=== PATIENT | female | born 1985 | race Caucasian/White ===

== ENCOUNTER → 2016-05-18 | Outpatient (CLI) | payer BC ==
[2016-05-18 11:18] LABS: BASO % 0.6 % (0.0-1.0); EOS # 0.7 K/mm3 (0.0-0.50); EOS % 8.2 % (0.0-3.0); LARGE UNSTAINED CELL # 0.1 K/mm3 (0.0-0.4); LYMPH # 1.2 K/mm3 (1.5-4.5); LYMPH % 12.4 % (24.0-44.0); MEAN CORPUSCULAR HEMOGLOBIN 30.6 pg (27.0-33.0); MEAN CORPUSCULAR HGB CONC 32.3 g/dl (32.0-36.5); MEAN CORPUSCULAR VOLUME 94.8 fl (80.0-96.0); MONO # 0.5 K/mm3 (0.0-0.8); MONO % 5.2 % (0.0-5.0); NEUTROPHILS # 6.4 K/mm3 (1.8-7.7); NEUTROPHILS % 72.6 % (36.0-66.0); PLATELET COUNT, AUTOMATED 229 k/mm3 (150-450); RED CELL DISTRIBUTION WIDTH 12.1 % (11.5-14.5); WHITE BLOOD COUNT 8.8 K/mm3 (4.0-10.0)
[2016-05-18 11:30] LABS: ALBUMIN 4.1 GM/DL (3.2-5.2); ALBUMIN/GLOBULIN RATIO 1.24 (1.00-1.93); CALCIUM LEVEL 8.9 MG/DL (8.5-10.1); CREATININE FOR GFR 1.14 MG/DL (0.55-1.02); GLOMERULAR FILTRATION RATE 58.4 (>60); POTASSIUM SERUM 4.4 MEQ/L (3.5-5.1); TOTAL PROTEIN 7.4 GM/DL (6.4-8.2)
== END ==
LOC: M ADAMS 08:16
PROVIDERS: ATTEND Family Medicine
DX: Z00.00 Encounter for general adult medical examination without abnormal findings (principal); E55.9 Vitamin D deficiency, unspecified

== ENCOUNTER → 2016-12-24 | Outpatient (CLI) | payer BC ==
--- NOTE | 2016-12-24 18:51 | REP ---
Clinical: Lateral Pain . Technique: AP, lateral, bilateral oblique views right foot . Findings: The osseous structures and joint spaces are intact and normal. There is no evidence for acute fracture or dislocation. Surrounding soft tissues are unremarkable. No subcutaneous emphysema or radiodense foreign body. Impression: Normal right foot series . No acute fracture or dislocation. Signed by Kiran King MD 12/24/2016 06:42 P
== END ==
LOC: M ADAMS 18:25
PROVIDERS: ATTEND Physician Assistant Medical
DX: M79.671 Pain in right foot (principal)

== ENCOUNTER 2017-03-24 07:03 | Day surgery (SDC) | payer BC ==
[~2017-03-24] VITALS: Ht 165.1 cm; Wt 71.7 kg
[~2017-03-24 07:03] MED LIST: SING10TA32 PO; ZYRT10CA PO
[2017-03-24] MEDS ORDERED: LIDOCAINE 2% INJ 100 MG/5 ML SDV (FOR ANES.) As Ordered ONE (07:09)
[2017-03-24] MEDS ORDERED: PROPOFOL 200 MG/20 ML VIAL As Ordered ONE (07:09)
[2017-03-24] MEDS ORDERED: NS 1,000 ML IV ONE (07:15)
[2017-03-24] MEDS ORDERED: ALBU83IN INH (07:27)
[2017-03-24] MEDS ORDERED: fentaNYL 100 MCG/2 ML INJECTION (J3010) As Ordered ONE (07:35)
--- NOTE | 2017-03-24 08:06 | ROOR ---
Patient Name: Ale Alexander Procedure Date: 03/24/2017 7:37 AM Date of : 1985 Age: 32 Room: [facility] Gender: Female Note Status: Finalized Procedure: Upper GI endoscopy + Balloon Dilatation + Biopsies Indications: Dysphagia Providers: Sam Ram MD Referring MD: Mayra Flores MD Requesting Provider: Medicines: Monitored Anesthesia Care Complications: No immediate complications. Procedure: Pre-Anesthesia Assessment: - The heart rate, respiratory rate, oxygen saturations, blood pressure, adequacy of pulmonary ventilation, and response to care were monitored throughout the procedure. The Endoscope was introduced through the mouth, and advanced to the second part of duodenum. The upper GI endoscopy was accomplished without difficulty. The patient tolerated the procedure well. Findings: Mucosal changes including ringed esophagus were found in the entire esophagus. Biopsies were obtained from the proximal and distal esophagus with cold forceps for histology of suspected eosinophilic esophagitis. Three benign-appearing, intrinsic stenoses were found. These stenoses were severe (stenosis; an endoscope cannot pass) and. The stenoses were traversed after dilation. A TTS dilator was passed through the scope. Dilation with a 10-11-12 mm balloon dilator was performed to 12 mm. The dilation site was examined and showed complete resolution of luminal narrowing. The examined duodenum was normal. The stomach was normal. The examined duodenum was normal. Impression: - Esophageal mucosal changes suggestive of eosinophilic esophagitis. Biopsied. - Benign-appearing esophageal stenoses. Dilated. - Normal examined duodenum. - Normal stomach. - Normal examined duodenum. - The examination was otherwise normal. Recommendation: - Patient has a contact number available for emergencies. The signs and symptoms of potential delayed complications were discussed with the patient. Return to normal activities tomorrow. Written discharge instructions were provided to the patient. - Discharge patient to home. - Continue present medications. - Await pathology results. - Telephone GI clinic for pathology results in 1 week. - The findings and recommendations were discussed with the patient's family. Sam Ram MD Sam Ram MD 03/24/2017 8:06:17 AM This report has been signed electronically. Number of Addenda: 0 Note Initiated On: 03/24/2017 7:37 AM Estimated Blood Loss: Estimated blood loss: none.
[2017-03-24 08:35] VITALS: BP 125/73
== END 2017-03-24 08:36 | disposition home or self-care (01) ==
LOC: M OPP 07:03
PROVIDERS: ATTEND Internal Medicine Gastroenterology
DX: R13.10 Dysphagia, unspecified (principal); R63.4 Abnormal weight loss; R63.0 Anorexia; K22.8 Other specified diseases of esophagus; K22.2 Esophageal obstruction; J45.909 Unspecified asthma, uncomplicated; F41.9 Anxiety disorder, unspecified; Z88.5 Allergy status to narcotic agent; Z91.010 Allergy to peanuts; Z91.013 Allergy to seafood; Z79.899 Other long term (current) drug therapy; Z80.0 Family history of malignant neoplasm of digestive organs
CPT/HCPCS: 43239; 43249; 88305; J3010

== ENCOUNTER → 2017-04-03 | Outpatient (REF) | payer BC ==
[~2017-04-03] MED LIST changes: +ALBU83IN INH
== END ==
LOC: M LAB REF 08:27
PROVIDERS: ATTEND Allergy & Immunology Allergy
DX: K20.0 Eosinophilic esophagitis (principal)

== ENCOUNTER → 2017-04-24 | Outpatient (REF) | payer BC ==
[2017-04-24 19:58] LABS: BASO # 0.1 10^3/uL (0.0-0.2); BASO % 0.8 % (0.0-1.0); EOS # 0.5 10^3/uL (0.0-0.50); HEMATOCRIT 40.5 % (36.0-47.0); HEMOGLOBIN 13.3 g/dl (12.0-16.0); IMMATURE GRANULOCYTE % 0.3 % (0-0); LYMPH # 1.9 10^3/uL (1.5-4.5); LYMPH % 28.1 % (24.0-44.0); MEAN CORPUSCULAR HEMOGLOBIN 30.4 pg (27.0-33.0); MEAN CORPUSCULAR HGB CONC 32.8 g/dl (32.0-36.5); MEAN CORPUSCULAR VOLUME 92.5 fl (80.0-96.0); MONO # 0.6 10^3/uL (0.0-0.8); MONO % 8.3 % (0.0-5.0); NEUTROPHILS # 3.6 10^3/uL (1.8-7.7); NEUTROPHILS % 54.5 % (36.0-66.0); PLATELET COUNT, AUTOMATED 219 10^3/uL (150-450); RED BLOOD COUNT 4.38 10^6/uL (4.00-5.40); RED CELL DISTRIBUTION WIDTH 12.3 % (11.5-14.5); WHITE BLOOD COUNT 6.7 10^3/uL (4.0-10.0)
== END ==
LOC: M LABDRWAD 19:24
DX: J45.40 Moderate persistent asthma, uncomplicated (principal); K20.0 Eosinophilic esophagitis
CPT/HCPCS: 85025

== ENCOUNTER → 2017-05-05 | Outpatient (REF) | payer BC | LOC: M LAB REF 13:23 | DX: D48.5 Neoplasm of uncertain behavior of skin (principal) ==

== ENCOUNTER → 2017-11-21 | Outpatient (CLI) | payer BC | LOC: M RAD 09:34 | DX: R93.8 Abnormal findings on diagnostic imaging of other specified body structures (principal); R06.00 Dyspnea, unspecified; R11.2 Nausea with vomiting, unspecified; R50.9 Fever, unspecified; R07.9 Chest pain, unspecified | CPT/HCPCS: 71250 ==

== ENCOUNTER → 2018-02-04 | Outpatient (CLI) | payer BC | LOC: M ADAMS 16:44 | DX: S50.02XA Contusion of left elbow, initial encounter (principal); W01.198A Fall on same level from slipping, tripping and stumbling with subsequent striking against other object, initial encounter; Y92.89 Other specified places as the place of occurrence of the external cause | CPT/HCPCS: 73080 ==

== ENCOUNTER 2018-04-09 10:40 | Emergency (ER) | payer BC ==
[~2018-04-09] VITALS: Ht 165.1 cm; Wt 69.1 kg
[2018-04-09] MEDS ORDERED: RANI150T (10:53)
[2018-04-09] MEDS ORDERED: ESOM1CAP5 (10:53)
[2018-04-09] MEDS ORDERED: MONT10TA2 (10:53)
[2018-04-09] MEDS ORDERED: SYMB80INH (10:53)
[2018-04-09] MEDS ORDERED: KETOROLAC 60 MG/2 ML VIAL (J1885) IM ONE (12:15)
[2018-04-09] MEDS ORDERED: dexameTHASONE 4 MG/ML 1ML VIAL (J1100) IM ONE (12:15)
[2018-04-09] MEDS ORDERED: CYCLOBENZAPRINE 10 MG TAB PO ONE (12:15)
[2018-04-09] MEDS ORDERED: PRED10TA2 PO (12:46)
[2018-04-09] MEDS ORDERED: NAPR-885 PO (12:46)
[2018-04-09 12:56] VITALS: BP 115/61
== END 2018-04-09 12:57 | disposition home or self-care (01) ==
LOC: M ED 10:40
DX: M54.32 Sciatica, left side (principal); J45.909 Unspecified asthma, uncomplicated; K20.9 Esophagitis, unspecified; Z91.018 Allergy to other foods; Z91.013 Allergy to seafood; Z91.011 Allergy to milk products; Z91.012 Allergy to eggs; Z88.5 Allergy status to narcotic agent; Z79.899 Other long term (current) drug therapy; Z79.51 Long term (current) use of inhaled steroids
CPT/HCPCS: 96372; 99283; J1100; J1885

== ENCOUNTER 2018-04-21 18:11 | Emergency (ER) | payer BC ==
[~2018-04-21] VITALS: Ht 165.1 cm; Wt 68.2 kg
[~2018-04-21 18:11] MED LIST changes: +ESOM1CAP5; +MONT10TA2; +NAPR-885 PO; +PRED10TA2 PO; +RANI150T; +SYMB80INH
[2018-04-21] MEDS ORDERED: diazePAM 10 MG TAB PO ONE (19:45)
[2018-04-21] MEDS ORDERED: fentaNYL 100 MCG/2 ML INJECTION (J3010) IM ONE (19:45)
[2018-04-21] MEDS ORDERED: GABA-843 PO (20:23)
[2018-04-21] MEDS ORDERED: META1TAB22 (20:23)
[2018-04-21] MEDS ORDERED: HYDROMORPHONE HCL 0.5 MG/ 0.5 ML SYRINGE (J1170 PER 1) IM STA (21:06)
--- NOTE | 2018-04-21 22:36 | REPVR ---
EXAM: MR Lumbar Spine Without Contrast. EXAM DATE/TIME: 04/21/2018 9:52 PM CLINICAL HISTORY: 33 years old, female; Pain; Sciatica; Bilateral; Patient HX: Siatic pain, >24 hours. Numbness down to toes, unable to bear weight, inability to void colon or bladder. Nki; Additional info: PT tender, groin numbness, lle weakness TECHNIQUE: Multiplanar magnetic resonance images of the lumbar spine without intravenous contrast. COMPARISON: No relevant prior studies available. FINDINGS: Vertebrae: Dextroscoliosis. T2 dark signal throughout the vertebral bodies consistent with normal red marrow in this age group. Spinal cord: Normal signal. No cord compression. DISCS/SPINAL CANAL/NEURAL FORAMINA: Levels reported below based on the assumption that the last mobile lumbar segments represents L5 however correlation with complete spine films recommended to count vertebrae and to exclude the possibility of a lumbarized S1 segment. L1-L2: No significant disc disease. No stenosis. L2-L3: Mild annular bulge L2-3 without central spinal stenosis. No foraminal or lateral recess stenosis. L3-L4: Disc desiccation and a small tear in the posterior annulus of L3-4. Bulging disc flattens the ventral subarachnoid space resulting in mild central spinal stenosis. No lateral recess or foraminal stenosis. L4-L5: Disc desiccation and loss of disc height at L4-5. Left paracentral inferiorly extruded disc herniation extends 9.5 mm below the superior endplate of L5 compressing the left ventrolateral aspect of the thecal sac, posteriorly displacing the traversing nerve roots and likely impinging on the exiting L4 nerve root on the left. Smaller foraminal disc protrusion on the right narrows the proximal neural foramen without impingement on the exiting L4 nerve on the right. No left-sided neural foraminal narrowing. Mild facet joint arthropathy. L5-S1: Disc desiccation and a bulging annulus at L5-S1 without central spinal stenosis. No foraminal or lateral recess stenosis. Soft tissues: Unremarkable. IMPRESSION: Left paracentral inferiorly extruded disc herniation at L4-5 extends 9.5 mm below the superior endplate of L5 compressing the left ventrolateral aspect of the thecal sac, posteriorly displacing the traversing nerve roots and likely impinging on the left exiting L4 nerve root. Smaller foraminal disc protrusion on the right narrows the proximal neural foramen without impingement on the exiting L4 nerve on the right. No left-sided neural foraminal narrowing. Mild facet joint arthropathy. Small annular tear demonstrated posteriorly at L3-4 without neural compromise. Bulging annulus at L5-S1 without neural compromise. Electronically signed by: Jacob Pineda On 04/21/2018 22:35:53 PM
[2018-04-21] MEDS ORDERED: PERC5TAB12 PO (23:50)
[2018-04-21] MEDS ORDERED: VALI10TA PO (23:50)
[2018-04-22] MEDS ORDERED: HYDROmorphone 2 MG TAB PO ONE
[2018-04-22 00:08] VITALS: BP 122/68
--- NOTE | 2018-04-23 16:16 | ED PDOC ---
Post-Departure Follow-Up dr borja faxed formal report of mri ls spine for fu Michael Sevilla MD Apr 23, 2018 16:16
== END 2018-04-22 00:09 | disposition home or self-care (01) ==
LOC: M ED 18:11
DX: M51.27 Other intervertebral disc displacement, lumbosacral region (principal); M54.16 Radiculopathy, lumbar region; M54.32 Sciatica, left side; J45.909 Unspecified asthma, uncomplicated; Z88.5 Allergy status to narcotic agent; Z91.011 Allergy to milk products; Z91.012 Allergy to eggs; Z91.018 Allergy to other foods; Z91.81 History of falling; Z79.899 Other long term (current) drug therapy; Z79.51 Long term (current) use of inhaled steroids
CPT/HCPCS: 72148; 96372; 99283; J1170; J3010

== ENCOUNTER → 2018-08-28 | Outpatient (REF) | payer BC ==
[~2018-08-28] MED LIST changes: +GABA-843 PO; +META1TAB22; +PERC5TAB12 PO; +VALI10TA PO
[2018-08-28 18:56] LABS: AMORPHOUS SEDIMENT SMALL (NEGATIVE); APPEARANCE, URINE CLOUDY (CLEAR); BACTERIA, URINE AUTO NEGATIVE (NEGATIVE); BILIRUBIN, URINE AUTO NEGATIVE (NEGATIVE); BLOOD, URINE BLOOD 3+ (NEGATIVE); COLOR, URINE YELLOW (YELLOW); GLUCOSE, URINE (UA) AUTO NEGATIVE (NEGATIVE); KETONE, URINE AUTO NEGATIVE (NEGATIVE); LEUKOCYTE ESTERASE, URINE AUTO NEGATIVE (NEGATIVE); MUCUS, URINE SMALL (NEGATIVE); NITRITE, URINE AUTO NEGATIVE (NEGATIVE); PROTEIN, URINE AUTO NEGATIVE (NEGATIVE); RBC, URINE AUTO TNTC /HPF (0-3); SPECIFIC GRAVITY URINE AUTO 1.021 (1.002-1.035); SQUAMOUS EPITHELIAL CELL UR AU 1 /HPF (0-6); WBC, URINE AUTO 4 /HPF (0-3)
== END ==
LOC: M LAB REF 18:35
PROVIDERS: ATTEND Physician Assistant Medical
DX: N39.0 Urinary tract infection, site not specified (principal)

== ENCOUNTER → 2018-09-08 | Outpatient (REF) | payer BC ==
[2018-09-08 13:24] LABS: APPEARANCE, URINE CLEAR (CLEAR); BACTERIA, URINE AUTO 1+ (NEGATIVE); BILIRUBIN, URINE AUTO NEGATIVE (NEGATIVE); BLOOD, URINE BLOOD NEGATIVE (NEGATIVE); COLOR, URINE YELLOW (YELLOW); GLUCOSE, URINE (UA) AUTO NEGATIVE (NEGATIVE); KETONE, URINE AUTO NEGATIVE (NEGATIVE); LEUKOCYTE ESTERASE, URINE AUTO NEGATIVE (NEGATIVE); MUCUS, URINE SMALL (NEGATIVE); NITRITE, URINE AUTO NEGATIVE (NEGATIVE); PROTEIN, URINE AUTO NEGATIVE (NEGATIVE); RBC, URINE AUTO 0 /HPF (0-3); SPECIFIC GRAVITY URINE AUTO 1.024 (1.002-1.035); SQUAMOUS EPITHELIAL CELL UR AU 0 /HPF (0-6); UROBILINOGEN, URINE AUTO 0.2 mg/dL (0.0-2.0); WBC, URINE AUTO 0 /HPF (0-3)
== END ==
LOC: M LAB REF 12:38
PROVIDERS: ATTEND Obstetrics & Gynecology
DX: N76.1 Subacute and chronic vaginitis (principal); R10.2 Pelvic and perineal pain

== ENCOUNTER → 2018-10-29 | Outpatient (REF) ==
[2018-10-29 17:56] LABS: BASO % 0.7 % (0.0-1.0); EOS # 0.1 10^3/uL (0.0-0.50); EOS % 1.1 % (0.0-3.0); HEMATOCRIT 44.6 % (36.0-47.0); HEMOGLOBIN 14.4 g/dl (12.0-15.5); LYMPH # 1.3 10^3/uL (1.5-4.5); LYMPH % 29.1 % (24.0-44.0); MEAN CORPUSCULAR HEMOGLOBIN 30.3 pg (27.0-33.0); MEAN CORPUSCULAR HGB CONC 32.3 g/dl (32.0-36.5); MEAN CORPUSCULAR VOLUME 93.7 fl (80.0-96.0); MONO # 0.4 10^3/uL (0.0-0.8); MONO % 9.6 % (0.0-5.0); NEUTROPHILS # 2.7 10^3/uL (1.8-7.7); NEUTROPHILS % 59.3 % (36.0-66.0); PLATELET COUNT, AUTOMATED 215 10^3/uL (150-450); RED BLOOD COUNT 4.76 10^6/uL (4.00-5.40); WHITE BLOOD COUNT 4.6 10^3/uL (4.0-10.0)
== END ==
LOC: M LABSMT 17:18
PROVIDERS: ATTEND Allergy & Immunology Allergy
DX: J45.50 Severe persistent asthma, uncomplicated (principal)

== ENCOUNTER → 2019-04-15 | Outpatient (CLI) | payer BC ==
--- NOTE | 2019-04-15 11:39 | REPPI ---
Clinical: Severe asthma. Dyspnea. Technique: PA and lateral. Comparison: 04/16/2012. Findings: Mediastinum and cardiac silhouette are normal. Subtle lingular atelectasis cannot be excluded. No focal consolidation. No effusion. No pneumothorax. Skeletal structures intact. Impression: Subtle lingular atelectasis. Electronically Signed by Kiran King MD 04/15/2019 11:30 A
== END ==
LOC: M PLAIMG 11:16 → M PLALAB 11:16
PROVIDERS: ATTEND Nurse Practitioner Adult Health
DX: J45.50 Severe persistent asthma, uncomplicated (principal)

== ENCOUNTER → 2019-04-16 | Outpatient (CLI) | payer BC ==
[2019-04-16 14:10] LABS: BASO % 0.6 % (0.0-1.0); EOS # 0.1 10^3/uL (0.0-0.5); EOS % 1.4 % (0.0-3.0); HEMATOCRIT 44.9 % (36.0-47.0); HEMOGLOBIN 13.9 g/dl (12.0-15.5); LYMPH # 1.5 10^3/uL (1.5-5.0); LYMPH % 30.7 % (24.0-44.0); MEAN CORPUSCULAR HEMOGLOBIN 29.4 pg (27.0-33.0); MEAN CORPUSCULAR VOLUME 95.1 fl (80.0-96.0); MONO # 0.4 10^3/uL (0.0-0.8); MONO % 7.2 % (0.0-5.0); NEUTROPHILS # 2.9 10^3/uL (1.5-8.5); NEUTROPHILS % 59.7 % (36.0-66.0); PLATELET COUNT, AUTOMATED 241 10^3/uL (150-450); RED BLOOD COUNT 4.72 10^6/uL (4.00-5.40); WHITE BLOOD COUNT 4.9 10^3/uL (4.0-10.0)
== END ==
LOC: M PLALAB 08:46
PROVIDERS: ATTEND Nurse Practitioner Adult Health
DX: J45.50 Severe persistent asthma, uncomplicated (principal)

== ENCOUNTER → 2019-08-23 | Outpatient (CLI) | payer BC ==
[~2019-08-23] MED LIST changes: -MONT10TA2; +MONT10TA4
[2019-08-23 13:48] LABS: BASO % 0.5 % (0.0-1.0); EOS # 0.1 10^3/uL (0.0-0.5); EOS % 0.8 % (0.0-3.0); HEMATOCRIT 41.2 % (36.0-47.0); HEMOGLOBIN 13.5 g/dl (12.0-15.5); LYMPH # 1.6 10^3/uL (1.5-5.0); LYMPH % 24.2 % (24.0-44.0); MEAN CORPUSCULAR HEMOGLOBIN 30.3 pg (27.0-33.0); MEAN CORPUSCULAR HGB CONC 32.8 g/dl (32.0-36.5); MEAN CORPUSCULAR VOLUME 92.6 fl (80.0-96.0); MONO # 0.5 10^3/uL (0.0-0.8); MONO % 7.9 % (0.0-5.0); NEUTROPHILS # 4.3 10^3/uL (1.5-8.5); NEUTROPHILS % 66.4 % (36.0-66.0); PLATELET COUNT, AUTOMATED 241 10^3/uL (150-450); RED BLOOD COUNT 4.45 10^6/uL (4.00-5.40); WHITE BLOOD COUNT 6.4 10^3/uL (4.0-10.0)
== END ==
LOC: M PLALAB 11:38
PROVIDERS: ATTEND Family Medicine
DX: D70.2 Other drug-induced agranulocytosis (principal)

== ENCOUNTER → 2019-10-04 | Outpatient (CLI) | payer BC ==
[~2019-10-04] MED LIST changes: +ADVI200T PO; +FLUT22IN INH; +HM A10TA PO; +NORC1TAB7 PO; +[UNRECOGNIZED DRUG - OTHER] SC
== END ==
LOC: M LABSMTC 09:49
PROVIDERS: ATTEND Anesthesiology
DX: Z03.818 Encounter for observation for suspected exposure to other biological agents ruled out (principal); Z11.59 Encounter for screening for other viral diseases
CPT/HCPCS: C9803; U0003

== ENCOUNTER 2019-10-07 07:21 | Day surgery (SDC) | payer BC ==
[~2019-10-07] VITALS: Ht 165.1 cm; Wt 66.2 kg
[2019-10-07] VITALS (8 sets, daily range): BP systolic 105–127; BP diastolic 55–72
[~2019-10-07 07:21] MED LIST changes: -ADVI200T PO; +LR 1,000 ML IV ONE; -NORC1TAB7 PO; +ceFAZolin SOD 2 GM in IV 1 EA IV ONE
[2019-10-07] MEDS ORDERED: propofoL 200 MG/20 ML VIAL As Ordered ONE (07:40)
[2019-10-07] MEDS ORDERED: LIDOCAINE 2% 100MG/5ML SDV (FOR ANES.) As Ordered ONE (07:40)
[2019-10-07] MEDS ORDERED: ROCURONIUM BROMIDE 50 MG/5 ML VIAL As Ordered ONE (07:40)
[2019-10-07] MEDS ORDERED: fentaNYL 250 MCG/5 ML INJECTION (J3010) As Ordered ONE (07:40)
[2019-10-07] MEDS ORDERED: MIDAZOLAM INJ 2MG/2ML VIAL (J2250 PER 1MG) As Ordered ONE (07:41)
[2019-10-07 08:06] LABS: HEMATOCRIT 41.7 % (36.0-47.0); HEMOGLOBIN 13.3 g/dl (12.0-15.5); MEAN CORPUSCULAR HEMOGLOBIN 28.9 pg (27.0-33.0); MEAN CORPUSCULAR HGB CONC 31.9 g/dl (32.0-36.5); MEAN CORPUSCULAR VOLUME 90.5 fl (80.0-96.0); PLATELET COUNT, AUTOMATED 207 10^3/uL (150-450); RED BLOOD COUNT 4.61 10^6/uL (4.00-5.40)
[2019-10-07] MEDS ORDERED: diphenhydrAMINE 50MG/ML VIAL (J1200) As Ordered ONE (08:14)
[2019-10-07] MEDS ORDERED: diphenhydrAMINE 50MG/ML VIAL (J1200) IV ONE (08:30)
[2019-10-07] MEDS ORDERED: ESMOLOL INJ 100MG/10ML VIAL As Ordered ONE (09:00)
[2019-10-07] MEDS ORDERED: ACETAMINOPHEN 1000MG 100ML IV BTL (OFIRMEV) (J0131 PER 10MG) As Ordered ONE (09:15)
[2019-10-07] MEDS ORDERED: KETOROLAC 60MG 2ML VIAL As Ordered ONE (09:15)
[2019-10-07] MEDS ORDERED: ONDANSETRON 4MG/2ML VIAL As Ordered ONE (09:15)
[2019-10-07] MEDS ORDERED: dexameTHASONE 4 MG/ML 1ML VIAL (J1100 PER 1MG) As Ordered ONE (09:15)
[2019-10-07] MEDS ORDERED: SUGAMMADEX SODIUM 500 MG/5 ML VIAL (BRIDION) As Ordered ONE (09:34)
[2019-10-07] MEDS ORDERED: HYDROmorphone HCL 2 MG/ML 1ML VIAL (J1170) As Ordered ONE (09:46)
[2019-10-07] MEDS ORDERED: MORPHINE 1MG/ML IN 0.9% NACL 100ML IV BAG As Ordered ONE (10:17)
[2019-10-07] MEDS: LR 1,000 ML IV SCH ×2 (10:30→18:30)
[2019-10-07] MEDS ORDERED: diphenhydrAMINE 50MG/ML VIAL (J1200) IV PRN (11:00)
[2019-10-07] MEDS ORDERED: MORPHINE 1MG/ML IN 0.9% NACL 100ML IV BAG IV PRN (11:00)
[2019-10-07] MEDS ORDERED: METOCLOPRAMIDE INJ 10MG/2ML VIAL (J2765 PER 1) IV PRN (11:00)
[2019-10-07] MEDS ORDERED: EPIDURAL/PCA KEYS XX PRN (11:00)
[2019-10-07] MEDS ORDERED: fentaNYL 100 MCG/2 ML INJECTION (J3010) IV PRN (11:00)
[2019-10-07] MEDS ORDERED: NALBUPHINE HCL 10 MG/ML AMP (J2300) IV PRN (11:00)
[2019-10-07] MEDS ORDERED: ONDANSETRON 4MG/2ML VIAL IV PRN (11:00)
[2019-10-07] MEDS ORDERED: LR 1,000 ML IV SCH (11:00)
[2019-10-07] MEDS ORDERED: NS 1,000 ML IV SCH (11:00)
[2019-10-07] MEDS ORDERED: NALOXONE INJ 0.4MG/1ML VIAL (J2310 PER 1MG) IV PRN (11:00)
[2019-10-07] MEDS ORDERED: PERCOCET 5MG/325MG TAB PO PRN (11:00)
[2019-10-07] MEDS ORDERED: NORCO, ANEXSIA 5/325MG TABLET (HYDROcodone/ACETAMINOPHEN) PO PRN (15:15)
[2019-10-07] MEDS: FLUTICASONE HFA 220 MCG 12 GM INHALER (FLOVENT) INH SCH (19:59)
[2019-10-07] MEDS: SYMBICORT 80/4.5MCG INHALER 6GM INH SCH (19:59)
[2019-10-07] MEDS: IBUPROFEN 600MG TAB PO PRN (20:49)
[2019-10-08] MEDS ORDERED: UNRESOLVED CLARIFICATION ENTRY XX SCH (00:01)
[2019-10-08 00:30] VITALS: BP 105/55
[2019-10-08] MEDS: LR 1,000 ML IV SCH (00:56)
[2019-10-08 04:30] VITALS: BP 115/58
[2019-10-08 07:18] LABS: HEMATOCRIT 35.5 % (36.0-47.0); HEMOGLOBIN 11.5 g/dl (12.0-15.5); MEAN CORPUSCULAR HEMOGLOBIN 29.5 pg (27.0-33.0); MEAN CORPUSCULAR HGB CONC 32.4 g/dl (32.0-36.5); PLATELET COUNT, AUTOMATED 187 10^3/uL (150-450); WHITE BLOOD COUNT 10.1 10^3/uL (4.0-10.0)
[2019-10-08] MEDS: FLUTICASONE HFA 220 MCG 12 GM INHALER (FLOVENT) INH SCH (07:33)
[2019-10-08] MEDS: SYMBICORT 80/4.5MCG INHALER 6GM INH SCH (07:33)
[2019-10-08] MEDS ORDERED: TIOTROPIUM INHALER/CAPSULE (SPIRIVA) INH SCH (08:00)
[2019-10-08] MEDS: IBUPROFEN 600MG TAB PO PRN (08:15)
[2019-10-08 08:16] VITALS: BP 128/56
[2019-10-08] MEDS ORDERED: ADVI200T PO (08:54)
[2019-10-08] MEDS ORDERED: NORC1TAB7 PO (08:54)
[2019-10-08] MEDS ORDERED: PANTOPRAZOLE 40MG TAB (PROTONIX) PO SCH (09:00)
[2019-10-08] MEDS ORDERED: MONTELUKAST 10 MG TAB PO SCH (09:00)
--- NOTE | 2019-10-12 14:17 | RO ---
DATE OF PROCEDURE: 10/07/2019 PREOPERATIVE DIAGNOSIS: Pain and bleeding. POSTOPERATIVE DIAGNOSIS: Pain and bleeding. PROCEDURE: Total vaginal hysterectomy with bilateral salpingectomy. The patient retains her ovaries as she desired. SURGEON: Dr. Olive Moreno DENTAL HYGIENE PROFESSOR: ANESTHESIA: General endotracheal anesthesia. DESCRIPTION OF PROCEDURE: Ale was brought to the operating room where sufficient general endotracheal anesthesia was induced. She was prepped, draped and positioned in the usual sterile fashion, but she had reacted to the chlorhexidine body swab, so we did switch over to a Betadine prep because of her rash that she had developed which of course responded to Benadryl preoperative. After prepping, positioning and draping, the bladder was emptied and then the weighted speculum placed and the anterior retractor placed and the cervix was grasped with single tooth tenacula. A circumferential incision was made around the base of the cervix. Sharp and blunt dissection were continued through subcutaneous tissues to isolate the cardinal ligaments which were clamped, transected and ligated. We subsequently opened posteriorly and were able to clamp, transect and ligate the uterosacral ligaments which were held for later reattachment to the cuff. We then dissected anteriorly to free up the bladder flap and then continued the dissection along the lateral aspects of the uterus, carefully controlling the uterine vasculature until the uterus could be delivered. The angles were carefully evaluated. There was a little bit of oozing from the cuff, but none from the pedicles. The patient had had a previous tubal ligation so the mid portion of the tube was already absent, but we were able to grasp the fimbria, on first the right side and then left, using a Babock, bringing it down to clamp the pedicle with the Locke and then suture that, and so both tubes were also delivered. We reevaluated the pedicles and had good hemostasis. Angle stitches of #0 Vicryl were placed on each side. Of course, the uterosacrals were resecured and then the cuff was closed with a running locked stitch of #0 Vicryl with good approximation and hemostasis achieved. A Alberto was placed postoperatively. Estimated blood loss for the procedure was about 50 mL. Fluid replacement was crystalloid. Complications: None. Condition and Disposition: Ale tolerated the procedure well and was recovering in the recovery room in good condition.
== END 2019-10-08 09:25 | disposition home or self-care (01) ==
LOC: M SDC 07:21 → M PED 11:55 → M SDC 10-08 09:25
PROVIDERS: ATTEND Obstetrics & Gynecology
DX: N92.0 Excessive and frequent menstruation with regular cycle (principal); R10.2 Pelvic and perineal pain; K21.9 Gastro-esophageal reflux disease without esophagitis; J45.909 Unspecified asthma, uncomplicated; Z79.899 Other long term (current) drug therapy; Z79.51 Long term (current) use of inhaled steroids; Z88.5 Allergy status to narcotic agent; Z91.012 Allergy to eggs; J30.2 Other seasonal allergic rhinitis
CPT/HCPCS: 36415; 58262; 81025; 85027; 86850; 86900; 86901; 88307; 94640; 96360; 96361; J0131; J0690; J1100; J1170; J1885; J2250; J2405; J3010

== ENCOUNTER → 2020-04-13 | Outpatient (CLI) | payer SELFPAY ==
[~2020-04-13] MED LIST changes: +ADVI200T PO; -LR 1,000 ML IV ONE; -MONT10TA4; +MONT5TAB2; +NORC1TAB7 PO; -ceFAZolin SOD 2 GM in IV 1 EA IV ONE
== END ==
LOC: M LABSMTC 13:02
PROVIDERS: ATTEND Pediatrics
DX: Z20.828 Contact with and (suspected) exposure to other viral communicable diseases (principal)

== ENCOUNTER → 2020-06-28 | Outpatient (CLI) | payer BC ==
[~2020-06-28] MED LIST changes: +GABA-282 PO; -GABA-843 PO; +MONT10TA10; -MONT5TAB2
[2020-06-28 13:20] LABS: BASO % 0.6 % (0.0-1.0); EOS # 0.1 10^3/uL (0.0-0.5); HEMATOCRIT 42.9 % (36.0-47.0); HEMOGLOBIN 13.9 g/dl (12.0-15.5); LYMPH # 1.5 10^3/uL (1.5-5.0); MEAN CORPUSCULAR HEMOGLOBIN 30.1 pg (27.0-33.0); MEAN CORPUSCULAR HGB CONC 32.4 g/dl (32.0-36.5); MEAN CORPUSCULAR VOLUME 92.9 fl (80.0-96.0); MONO # 0.4 10^3/uL (0.0-0.8); MONO % 8.1 % (2.0-8.0); NEUTROPHILS # 3.1 10^3/uL (1.5-8.5); NEUTROPHILS % 60.9 % (36.0-66.0); PLATELET COUNT, AUTOMATED 248 10^3/uL (150-450); RED BLOOD COUNT 4.62 10^6/uL (4.00-5.40)
[2020-06-28 14:34] LABS: ALBUMIN 3.9 GM/DL (3.2-5.2); ALT/SGPT 18 U/L (12-78); BILIRUBIN,TOTAL 0.5 MG/DL (0.2-1.0); BLOOD UREA NITROGEN 16 MG/DL (7-18); CALCIUM LEVEL 9.5 MG/DL (8.5-10.1); CARBON DIOXIDE LEVEL 25 MEQ/L (21-32); CHLORIDE LEVEL 106 MEQ/L (98-107); GLOMERULAR FILTRATION RATE > 60.0 (>60); GLUCOSE, FASTING 85 MG/DL (70-100); POTASSIUM SERUM 4.1 MEQ/L (3.5-5.1); SODIUM LEVEL 139 MEQ/L (136-145)
== END ==
LOC: M LAB 12:16
PROVIDERS: ATTEND Nurse Practitioner
DX: R19.7 Diarrhea, unspecified (principal)

== ENCOUNTER → 2020-06-30 | Outpatient (REF) | payer BC | LOC: M LAB REF 09:15 | DX: R19.7 Diarrhea, unspecified (principal) ==

== ENCOUNTER → 2022-04-22 | Outpatient (CLI) | payer BC ==
[~2022-04-22] MED LIST changes: +ALBU2.5V10 INH; -ALBU83IN INH; +GNPTAB36 PO; -HM A10TA PO; -MONT10TA10; +MONT10TA97
[2022-04-22 18:14] LABS: BASO # 0.1 10^3/uL (0.0-0.2); BASO % 0.8 % (0.0-1.0); EOS # 0.5 10^3/uL (0.0-0.5); EOS % 6.4 % (0.0-3.0); HEMATOCRIT 41.3 % (36.0-47.0); HEMOGLOBIN 12.9 g/dl (12.0-15.5); LYMPH # 2.4 10^3/uL (1.5-5.0); LYMPH % 33.6 % (24.0-44.0); MEAN CORPUSCULAR HEMOGLOBIN 27.2 pg (27.0-33.0); MEAN CORPUSCULAR HGB CONC 31.2 g/dl (32.0-36.5); MEAN CORPUSCULAR VOLUME 87.1 fl (80.0-96.0); MONO # 0.5 10^3/uL (0.0-0.8); MONO % 6.8 % (2.0-8.0); NEUTROPHILS # 3.8 10^3/uL (1.5-8.5); NEUTROPHILS % 52.1 % (36.0-66.0); PLATELET COUNT, AUTOMATED 279 10^3/uL (150-450); RED BLOOD COUNT 4.74 10^6/uL (4.00-5.40); WHITE BLOOD COUNT 7.2 10^3/uL (4.0-10.0)
[2022-04-22 18:36] LABS: ALBUMIN 4.3 G/DL (3.2-5.2); ALKALINE PHOSPHATASE 69 U/L (46-116); ALT/SGPT 19 U/L (7.0-40); AST/SGOT 25 U/L (<34); BILIRUBIN,TOTAL 0.5 MG/DL (0.3-1.2); BLOOD UREA NITROGEN 15 MG/DL (9-23); CALCIUM LEVEL 9.7 MG/DL (8.5-10.1); CARBON DIOXIDE LEVEL 27 MMOL/L (20-31); CHLORIDE LEVEL 104 MMOL/L (98-107); CREATININE FOR GFR 0.84 MG/DL (0.55-1.30); GLOMERULAR FILTRATION RATE > 60.0 (>60); GLUCOSE, FASTING 80 MG/DL (60-100); POTASSIUM SERUM 4.2 MMOL/L (3.5-5.1); SODIUM LEVEL 138 MMOL/L (136-145); TOTAL PROTEIN 7.6 G/DL (5.7-8.2)
== END ==
LOC: M LAB 17:01
PROVIDERS: ATTEND Registered Nurse
DX: R10.84 Generalized abdominal pain (principal)

== ENCOUNTER → 2022-04-23 | Outpatient (CLI) | payer BC ==
[~2022-04-23] MED LIST changes: +GASTROGRAFIN SOLUTION 30ML As Ordered ONE; +ISOVUE-370 76% 100ML VIAL As Ordered ONE
== END ==
LOC: M RAD 14:04
PROVIDERS: ATTEND Registered Nurse
DX: R10.84 Generalized abdominal pain (principal)

== ENCOUNTER → 2023-02-21 | Outpatient (CLI) | payer BC ==
[~2023-02-21] MED LIST changes: +DIAZ-654 PO; -GASTROGRAFIN SOLUTION 30ML As Ordered ONE; -ISOVUE-370 76% 100ML VIAL As Ordered ONE; +MONT-5 PO; -SING10TA32 PO; -VALI10TA PO
[2023-02-21 11:40] LABS: BASO # 0.1 10^3/uL (0.0-0.2); BASO % 1.1 % (0.0-1.0); EOS # 0.4 10^3/uL (0.0-0.5); HEMATOCRIT 35.8 % (36.0-47.0); HEMOGLOBIN 10.9 g/dl (12.0-15.5); LYMPH # 1.5 10^3/uL (1.5-5.0); LYMPH % 32.3 % (24.0-44.0); MEAN CORPUSCULAR HEMOGLOBIN 26.3 pg (27.0-33.0); MEAN CORPUSCULAR HGB CONC 30.4 g/dl (32.0-36.5); MEAN CORPUSCULAR VOLUME 86.3 fl (80.0-96.0); MONO # 0.5 10^3/uL (0.0-0.8); MONO % 9.7 % (2.0-8.0); NEUTROPHILS # 2.3 10^3/uL (1.5-8.5); NEUTROPHILS % 48.7 % (36.0-66.0); PLATELET COUNT, AUTOMATED 283 10^3/uL (150-450); RED BLOOD COUNT 4.15 10^6/uL (4.00-5.40); WHITE BLOOD COUNT 4.6 10^3/uL (4.0-10.0)
[2023-02-21 11:55] LABS: INR 1.05; PROTHROMBIN TIME 13.4 SECONDS (12.5-14.5)
[2023-02-21 12:05] LABS: ALBUMIN 3.4 G/DL (3.2-5.2); ALKALINE PHOSPHATASE 57 U/L (46-116); ALT/SGPT 15 U/L (7.0-40); AST/SGOT 17 U/L (<34); BILIRUBIN,TOTAL 0.5 MG/DL (0.3-1.2); BLOOD UREA NITROGEN 14 MG/DL (9-23); CALCIUM LEVEL 8.9 MG/DL (8.5-10.1); CARBON DIOXIDE LEVEL 27 MMOL/L (20-31); CHLORIDE LEVEL 108 MMOL/L (98-107); CREATININE FOR GFR 0.83 MG/DL (0.55-1.30); GLOMERULAR FILTRATION RATE > 60.0 (>58); GLUCOSE, FASTING 91 MG/DL (60-100); IRON (FE) 25 UG/DL (50-170); PERCENT SATURATION 7.1 % (13.2-45.0); POTASSIUM SERUM 4.4 MMOL/L (3.5-5.1); SODIUM LEVEL 139 MMOL/L (136-145); TOTAL IRON BINDING CAPACITY 354 UG/DL (250-425); TOTAL PROTEIN 6.4 G/DL (5.7-8.2)
[2023-02-21 12:07] LABS: FERRITIN 6.3 NG/ML (7.3-270.7)
[2023-02-21 12:08] LABS: VITAMIN B12 LEVEL 648 PG/ML (211-911)
== END ==
LOC: M WUC 09:16
PROVIDERS: ATTEND Registered Nurse
DX: E61.1 Iron deficiency (principal)

== ENCOUNTER → 2023-07-04 | Outpatient (REF) | payer BC ==
[2023-07-04 18:22] LABS: BASO % 0.5 % (0.0-1.0); EOS # 0.2 10^3/uL (0.0-0.5); EOS % 2.6 % (0.0-3.0); HEMOGLOBIN 11.9 g/dl (12.0-15.5); LYMPH # 1.8 10^3/uL (1.5-5.0); LYMPH % 30.5 % (24.0-44.0); MEAN CORPUSCULAR HEMOGLOBIN 28.3 pg (27.0-33.0); MEAN CORPUSCULAR HGB CONC 31.3 g/dl (32.0-36.5); MEAN CORPUSCULAR VOLUME 90.5 fl (80.0-96.0); MONO # 0.4 10^3/uL (0.0-0.8); MONO % 6.5 % (2.0-8.0); NEUTROPHILS # 3.6 10^3/uL (1.5-8.5); NEUTROPHILS % 59.6 % (36.0-66.0); PLATELET COUNT, AUTOMATED 267 10^3/uL (150-450)
[2023-07-04 18:43] LABS: PERCENT SATURATION 8.5 % (13.2-45.0)
[2023-07-04 18:44] LABS: FERRITIN 6.1 NG/ML (7.3-270.7)
== END ==
LOC: M LAB REF 16:15 → M LABWUC 16:15
PROVIDERS: ATTEND Registered Nurse
DX: D50.9 Iron deficiency anemia, unspecified (principal)

== ENCOUNTER 2023-08-27 15:37 | Outpatient (CLI) | payer BC ==
[~2023-08-27] VITALS: Ht 162.6 cm; Wt 68.2 kg
[~2023-08-27 15:37] MED LIST changes: +DUPI300P SQ; -ESOM1CAP5; +ESOM1CAP5 PO; +FER-15DR PO
[2023-08-27 15:40] VITALS: BP 120/54; O2SAT 97
[2023-08-27] MEDS: IRON SUCROSE 200 MG in NS 100 ML OVER 1 HR IV ONE (15:58)
[2023-08-27 17:09] VITALS: BP 131/77; O2SAT 100
== END 2023-08-27 17:10 | disposition home or self-care (01) ==
LOC: M INFU 15:37
PROVIDERS: ATTEND Internal Medicine Hematology & Oncology
DX: D50.9 Iron deficiency anemia, unspecified (principal); Z91.018 Allergy to other foods; Z91.010 Allergy to peanuts; Z91.013 Allergy to seafood; Z91.011 Allergy to milk products; Z88.5 Allergy status to narcotic agent
CPT/HCPCS: 96365; J1756

== ENCOUNTER 2023-09-03 14:55 | Outpatient (CLI) | payer BC ==
[2023-09-03 14:55] VITALS: BP 140/65; O2SAT 99
[2023-09-03] MEDS: IRON SUCROSE 200 MG in NS 100 ML OVER 1 HR IV ONE (15:03)
[2023-09-03 16:10] VITALS: BP 184/77; O2SAT 97
== END 2023-09-03 16:10 | disposition home or self-care (01) ==
LOC: M INFU 14:55
PROVIDERS: ATTEND Internal Medicine Hematology & Oncology
DX: D50.9 Iron deficiency anemia, unspecified (principal); Z88.5 Allergy status to narcotic agent; Z91.018 Allergy to other foods; Z91.010 Allergy to peanuts; Z91.012 Allergy to eggs; Z91.011 Allergy to milk products; Z91.013 Allergy to seafood
CPT/HCPCS: 96365; J1756

== ENCOUNTER 2023-09-10 13:30 | Outpatient (CLI) | payer BC ==
[2023-09-10 13:40] VITALS: BP 121/64; O2SAT 100
[2023-09-10] MEDS: IRON SUCROSE 200 MG in NS 100 ML OVER 1 HR IV ONE (14:29)
[2023-09-10 15:30] VITALS: BP 124/72; O2SAT 100
== END 2023-09-10 15:40 | disposition home or self-care (01) ==
LOC: M INFU 13:30
PROVIDERS: ATTEND Internal Medicine Hematology & Oncology
DX: D50.9 Iron deficiency anemia, unspecified (principal); Z91.018 Allergy to other foods; Z91.09 Other allergy status, other than to drugs and biological substances; Z91.010 Allergy to peanuts; Z88.8 Allergy status to other drugs, medicaments and biological substances
CPT/HCPCS: 96365; J1756

== ENCOUNTER 2023-09-17 12:00 | Outpatient (CLI) | payer BC ==
[~2023-09-17] VITALS: Ht 165.1 cm; Wt 68.1 kg
[2023-09-17 12:00] VITALS: BP 116/69; O2SAT 100
[~2023-09-17 12:00] MED LIST changes: +ESOM1CAP20 PO; -ESOM1CAP5 PO
[2023-09-17] MEDS: IRON SUCROSE 200 MG in NS 100 ML OVER 1 HR IV ONE (12:31)
[2023-09-17 13:30] VITALS: BP 112/75; O2SAT 100
== END 2023-09-17 13:35 ==
LOC: M INFU 12:00
PROVIDERS: ATTEND Internal Medicine Hematology & Oncology
DX: D50.9 Iron deficiency anemia, unspecified (principal); Z91.010 Allergy to peanuts; Z91.013 Allergy to seafood; Z91.012 Allergy to eggs; Z91.018 Allergy to other foods; Z88.5 Allergy status to narcotic agent
CPT/HCPCS: 96365; J1756

== ENCOUNTER 2023-10-03 07:05 | Outpatient (CLI) | payer BC ==
[~2023-10-03] VITALS: Ht 162.6 cm; Wt 68.8 kg
[2023-10-03 07:05] VITALS: BP 133/63; O2SAT 99
[2023-10-03 07:36] LABS: HEMATOCRIT 39.1 % (36.0-47.0); HEMOGLOBIN 12.9 g/dl (12.0-15.5); MEAN CORPUSCULAR HEMOGLOBIN 29.5 pg (27.0-33.0); MEAN CORPUSCULAR VOLUME 89.3 fl (80.0-96.0); PLATELET COUNT, AUTOMATED 201 10^3/uL (150-450); RED BLOOD COUNT 4.38 10^6/uL (4.00-5.40); WHITE BLOOD COUNT 4.7 10^3/uL (4.0-10.0)
[2023-10-03] MEDS: IRON SUCROSE 200 MG in NS 100 ML OVER 1 HR IV ONE (08:13)
[2023-10-03 08:55] VITALS: BP 135/74; O2SAT 100
== END 2023-10-03 08:55 | disposition home or self-care (01) ==
LOC: M INFU 07:05
PROVIDERS: ATTEND Internal Medicine Hematology & Oncology
DX: D50.9 Iron deficiency anemia, unspecified (principal); Z91.010 Allergy to peanuts; Z91.018 Allergy to other foods; Z91.012 Allergy to eggs; Z88.5 Allergy status to narcotic agent; Z91.048 Other nonmedicinal substance allergy status
CPT/HCPCS: 36415; 82728; 85027; 96365; J1756